=== PATIENT | female | born 2000 | race Caucasian/White ===

== ENCOUNTER 2019-10-16 21:23 | Emergency (ER) | payer OTHER ==
[2019-10-16 21:42] VITALS: O2SAT 97
--- NOTE | 2019-10-16 22:12 | ERPHSYRPT ---
- History of Present Illness Time Seen by Provider: 10/16/19 21:40 Source: patient Exam Limitations: no limitations Patient Subjective Stated Complaint: pt states she jumped on s/o back to get off of porch and they fell on some bricks. states she came down hard on her lt foot and has been having pain since. states she is unable to bear weight on lt foot Triage Nursing Assessment: pt alert and oriented, answers questions approp. pt back per wheelchair, transfers to stretcher per self, nwb on lt lower. cap refill and pedal pulse to lt lwower wnl. mild swelling to lt foot. Physician History: 19 years old female presented in the ER with chief complaint of fall with left foot pain prior to arrival. Pain is moderate intensity sharp in nature, aggravated with weightbearing/movements and better with being still. Minimal swelling around the little toe area. She also has a superficial skin tear on the sole of left foot with no bleeding. No injury anywhere else. Date with immunizations. Method of Injury: fell Occurred: this afternoon Quality: sharpness Severity of Pain-Max: moderate Severity of Pain-Current: moderate Lower Extremities Pain: foot: left Modifying Factors: Improves With: immobilization, movement Associated Symptoms: none Allergies/Adverse Reactions: No Known Drug Allergies Allergy (Verified 10/16/19 21:42) Home Medications: PARoxetine HCl [Paxil] 10 mg PO DAILY 10/16/19 [History] Hx Tetanus, Diphtheria Vaccination/Date Given: Yes Hx Influenza Vaccination/Date Given: No Hx Pneumococcal Vaccination/Date Given: No Immunizations Up to Date: Yes Travel Risk - International Travel Have you traveled outside of the country in past 3 weeks: No - Coronavirus Screening Are you exhibiting any of the following symptoms?: No Close contact with a COVID-19 positive Pt in past 14-21 Days: No - Review of Systems Constitutional: No Symptoms Eyes: No Symptoms Ears, Nose, & Throat: No Symptoms Respiratory: No Symptoms Cardiac: No Symptoms Abdominal/Gastrointestinal: No Symptoms Musculoskeletal: Fall, Injury, Joint Swelling Skin: Skin Lesions Neurological: No Symptoms Psychological: No Symptoms Endocrine: No Symptoms Hematologic/Lymphatic: No Symptoms Immunological/Allergic: No Symptoms - Past Medical History Pertinent Past Medical History: Yes Psycho-Social History: Depression - Past Surgical History Past Surgical History: No - Social History Smoking Status: Current every day smoker How long have you smoked: 1yr Exposure to second hand smoke: Yes Drug Use: none Patient Lives Alone: No - Female History Hx Last Menstrual Period: october 03- Hx Now: No - Nursing Vital Signs Nursing Vital Signs: Initial Vital Signs Temperature 98.3 F 10/16/19 21:30 Pulse Rate 85 10/16/19 21:30 Respiratory Rate 16 10/16/19 21:30 Blood Pressure 136/83 10/16/19 21:30 O2 Sat by Pulse Oximetry 97 10/16/19 21:30 Pain Scale Pain Intensity 5 - Physical Exam General Appearance: no apparent distress Eyes, Ears, Nose, Throat Exam: normal ENT inspection, pharynx normal Neck Exam: normal inspection, supple, full range of motion Cardiovascular/Respiratory Exam: normal breath sounds, regular rate/rhythm Gastrointestinal/Abdominal Exam: non-tender, soft Back Exam: normal inspection, normal range of motion Foot Exam: right foot: non-tender, normal inspection, normal range of motion, no evidence of injury, left foot: abrasions/lacerations (Swollen on the lateral aspect at base of fifth toe), bone tenderness (Fifth metatarsal phalangeal joint area), limited range of motion (Fifth toe), pain, soft tissue tenderness, swelling Neuro/Tendon Exam: normal sensation Mental Status Exam: alert, oriented x 3 Skin Exam: normal color, warm SpO2: 97 O2 Delivery: Room Air - Course Nursing assessment & vital signs reviewed: Yes Ordered Tests: Active Orders 24 hr Category Date Time Status Cold Application STAT Care 10/16/19 21:31 Completed Splint STAT Care 10/16/19 22:10 Completed FOOT (MINIMUM 3 VIEWS) Stat Exams 10/16/19 21:32 Taken - Progress Progress: unchanged, pain not gone completely Progress Note: 10/16/19 22:11 She is given ice pack. She is offered pain medication which she refused. X- rays foot on my review did not reveal any obvious fracture dislocation. She has difficulty ambulation, placed in a postop shoe and crutches as needed. Recommended taking Tylenol ibuprofen and outpatient follow-up with Ortho clinic. She has a superficial skin tear on the sole of the foot with no deep needing any suturing or intervention. Discussed signs symptoms of worsening needing return to ER which she seemed understanding. Counseled pt/family regarding: diagnosis, need for follow-up, rad results - Departure Departure Disposition: Home Clinical Impression: Acute pain of left foot Condition: Good Critical Care Time: No Referrals: JOVANI PELLETIER NP [Primary Care Provider] - Follow Up with PCP/3 days RAMIN SALAZAR NP [NON-STAFF PHY W/O PRIVILEGES] - (2 days for reevaluation) Instructions: Contusion (DC), Foot Sprain (DC) Additional Instructions: Take Tylenol/ibuprofen as needed for pain. Follow-up with Ortho clinic for reevaluation. Return to ER for any worsening. Prescriptions: Ibuprofen 600 mg PO Q6HPRN PRN 10 Days #20 tablet PRN Reason: Pain
[2019-10-16 22:18] VITALS: BP 118/88; PULSE 80
--- NOTE | 2019-10-17 07:50 | XRAY ---
Indication: Pain following injury. Comparison: None 3 nonweight bearing views left foot demonstrates navicular accessory ossicle. No other bony, articular, or soft tissue abnormalities.
== END 2019-10-16 22:23 | disposition home or self-care (01) ==
LOC: ED 21:23
DX: M79.672 Pain in left foot (principal); W01.198A Fall on same level from slipping, tripping and stumbling with subsequent striking against other object, initial encounter; Y92.9 Unspecified place or not applicable; S91.312A Laceration without foreign body, left foot, initial encounter
CPT/HCPCS: 73630; 99283

== ENCOUNTER 2024-04-20 15:47 | Emergency (ER) | payer SELFPAY ==
--- NOTE | 2024-04-20 16:32 | ERPHSYRPT ---
- History of Present Illness Time Seen by Provider: 04/20/24 16:27 Source: patient Exam Limitations: no limitations Physician History: 24-year-old female currently 6 weeks presents to our ED for evaluation of nausea vomiting and diarrhea. S nausea vomiting diarrhea is nonbloody nonbilious. ymptoms have been ongoing. Patient is worried about dehydration. No trauma no fever. Symptoms are mild to moderate in intensity. No specific worsening improving factors. Patient states she is otherwise healthy. Significant other at bedside. They voiced no other complaints or concerns at this time. Patient has no complaints regarding her . No abdominal pain cramping or vaginal bleeding. Portions of this note were created with voice recognition technology. There may be grammatical, spelling, punctuation or sound alike errors Timing/Duration: today Severity: moderate Modifying Factors: Improves With: nothing Associated Symptoms: denies symptoms Allergies/Adverse Reactions: No Known Drug Allergies Allergy (Verified 04/20/24 16:30) Home Medications: Pediatric Multivitamin No.42 [Flintstones] 1 tab PO DAILY 04/20/24 [History] Hx Tetanus, Diphtheria Vaccination/Date Given: Yes Hx Influenza Vaccination/Date Given: No Hx Pneumococcal Vaccination/Date Given: No - Review of Systems Constitutional: No Symptoms, No Fever, No Chills Eyes: No Symptoms Ears, Nose, & Throat: No Symptoms Respiratory: No Symptoms, No Cough, No Dyspnea Cardiac: No Symptoms, No Chest Pain, No Edema, No Syncope Abdominal/Gastrointestinal: No Symptoms, No Abdominal Pain, No Nausea, No Vomiting, No Diarrhea Genitourinary Symptoms: No Symptoms, No Dysuria Musculoskeletal: No Symptoms, No Back Pain, No Neck Pain Skin: No Symptoms, No Rash Neurological: No Symptoms, No Dizziness, No Focal Weakness, No Sensory Changes Psychological: No Symptoms Endocrine: No Symptoms Hematologic/Lymphatic: No Symptoms Immunological/Allergic: No Symptoms All Other Systems: Reviewed and Negative - Past Medical History Pertinent Past Medical History: Yes Psycho-Social History: Depression - Past Surgical History Past Surgical History: No - Social History Smoking Status: Current every day smoker How long have you smoked: 1yr Exposure to second hand smoke: Yes Drug Use: none Patient Lives Alone: No - Nursing Vital Signs Nursing Vital Signs: Initial Vital Signs Temperature 97.9 F 04/20/24 16:22 Pulse Rate 80 04/20/24 16:22 Blood Pressure 130/82 02/04/25 16:22 O2 Sat by Pulse Oximetry 100 04/20/24 16:22 Pain Scale Pain Intensity 0 - Physical Exam General Appearance: no apparent distress, alert Eye Exam: PERRL/EOMI, eyes nml inspection Ears, Nose, Throat Exam: normal ENT inspection, pharynx normal, moist mucous membranes Neck Exam: normal inspection, full range of motion Respiratory Exam: normal breath sounds, lungs clear, airway intact, No respiratory distress Cardiovascular Exam: regular rate/rhythm, normal heart sounds, normal peripheral pulses Gastrointestinal/Abdomen Exam: soft, normal bowel sounds, No tenderness, No mass Back Exam: normal inspection, normal range of motion, No CVA tenderness, No vertebral tenderness Extremity Exam: normal inspection, normal range of motion, pelvis stable Neurologic Exam: alert, oriented x 3, cooperative, normal mood/affect, sensation nml, No motor deficits Skin Exam: normal color, warm, dry, No rash Lymphatic Exam: No adenopathy SpO2 Interpretation: normal O2 Delivery: Room Air - Course Nursing assessment & vital signs reviewed: Yes Ordered Tests: Active Orders 24 hr Category Date Time Status IV Insertion STAT Care 04/20/24 16:39 Completed CBC W DIFF Stat Lab 04/20/24 16:45 Completed CMP Stat Lab 04/20/24 16:45 Completed CULTURE,URINE Stat Lab 04/20/24 16:53 Received UA W/RFX UR CULTURE Stat Lab 04/20/24 16:53 Completed Medication Summary Discontinued Medications Generic Name Dose Route Start Last Admin Trade Name Freq PRN Reason Stop Dose Admin Sodium Chloride 1,000 mls @ 999 mls/hr 04/20/24 16:39 04/20/24 17:01 Sodium Chloride 0.9% 1000 Ml IV 04/20/24 17:39 999 mls/hr .Q1H1M STA Administration Sodium Chloride Confirm 04/20/24 16:59 Sodium Chloride 0.9% 1000 Ml Administered 04/20/24 17:00 Dose 1,000 mls @ ud .ROUTE .STK-MED ONE Nitrofurantoin Macrocrystals 100 mg 04/20/24 18:43 04/20/24 18:54 Nitrofurantoin Macro 100 Mg Capsule PO 04/20/24 18:44 100 mg STAT ONE Administration Nitrofurantoin Macrocrystals Confirm 04/20/24 18:53 Nitrofurantoin Macro 100 Mg Capsule Administered 04/20/24 18:54 Dose 100 mg .ROUTE .STK-MED ONE Ondansetron HCl 4 mg 04/20/24 16:39 04/20/24 17:02 Ondansetron Hcl 4 Mg/2 Ml Vial IV 04/20/24 16:40 4 mg STAT ONE Administration Ondansetron HCl Confirm 04/20/24 16:59 Ondansetron Hcl 4 Mg/2 Ml Vial Administered 04/20/24 17:00 Dose 4 mg .ROUTE .STK-MED ONE Ondansetron HCl 4 mg 04/20/24 18:45 04/20/24 18:55 Ondansetron Hcl 4 Mg/2 Ml Vial IV 04/20/24 18:46 4 mg STAT ONE Administration Ondansetron HCl Confirm 04/20/24 18:53 Ondansetron Hcl 4 Mg/2 Ml Vial Administered 04/20/24 18:54 Dose 4 mg .ROUTE .STK-MED ONE Lab/Rad Data: Laboratory Result Diagrams 04/20/24 16:45 04/20/24 16:45 Laboratory Results 04/20/24 04/20/24 04/20/24 Range/Units 16:53 16:45 16:45 WBC 7.2 (3.98-10.04) x10^3/uL RBC 4.80 (3.93-5.22) x10^6/uL Hgb 14.7 (11.2-15.7) g/dL Hct 41.5 (34.1-44.9) % MCV 86.5 (79.4-94.8) fL MCH 30.6 (25.6-32.2) pg MCHC 35.4 (32.2-35.5) g/dL RDW 11.9 (11.7-14.4) % Plt Count 327 (182-369) x10^3/uL MPV 9.5 (9.4-12.3) fL Gran % 65.5 (34.0-71.1) % Immature Gran % (Auto) 0.3 (0.001-0.429) % Nucleat RBC Rel Count 0.0 (0.00-0.2) % Eos # (Auto) 0.04 (0.04-0.36) x10^3/uL Immature Gran # (Auto) 0.02 (0.001-0.031) x10^3u/L Absolute Lymphs (auto) 1.82 (1.18-3.74) x10^3/uL Absolute Monos (auto) 0.57 (0.24-0.86) x10^3/uL Absolute Nucleated RBC 0.00 (0.00-0.012) x10^3u/L Lymphocytes % 25.3 (19.3-51.7) % Monocytes % 7.9 (4.7-12.5) % Eosinophils % 0.6 L (0.7-5.8) % Basophils % 0.4 (0.1-1.2) % Absolute Granulocytes 4.70 (1.56-6.13) x10^3/uL Basophils # 0.03 (0.01-0.08) x10^3/uL Sodium 136 (135-145) mmol/L Potassium 3.8 (3.5-5.1) mmol/L Chloride 100 (98-107) mmol/L Carbon Dioxide 22 (22-30) mmol/L Anion Gap 17.6 H (5-15) MEQ/L BUN 8 (7-17) mg/dL Creatinine 0.54 (0.52-1.04) mg/dL Estimated GFR 130.1 ML/MIN Glucose 89 (74-106) mg/dL Calcium 9.7 (8.4-10.2) mg/dL Total Bilirubin 1.10 (0.2-1.3) mg/dL AST 26 (14-36) U/L ALT 21 (0-35) U/L Alkaline Phosphatase 62 (38-126) U/L Serum Total Protein 7.8 (6.3-8.2) g/dL Albumin 5.1 H (3.5-5.0) g/dL Urine Color Dark Yellow A (Yellow) Urine Appearance Cloudy A (Clear) Urine pH 6.5 (4.6-8.0) Ur Specific [place] >=1.030 A (1.005-1.030) Urine Protein 100 A (Negative) Urine Glucose (UA) Negative (Negative) mg/dL Urine Ketones >=160 A (Negative) Urine Blood Trace (Negative) Urine Nitrite Negative (Negative) Urine Bilirubin Negative (Negative) Urine Urobilinogen 1.0 A (0.2) mg/dL Ur Leukocyte Esterase Moderate A (Negative) U Hyaline Cast (Auto) 3-5 A (0-2) /LPF Urine Microscopic RBC 11-20 A (0-5) /HPF Urine Microscopic WBC 21-50 A (0-5) /HPF Ur Epithelial Cells Many A (None Seen) /HPF Urine Bacteria Moderate A (None Seen) /HPF Urine Culture Reflexed YES (NO) - Progress Progress: improved Progress Note: 24-year-old female presents to our ED with nausea vomiting diarrhea. Physical exam unremarkable. Workup reveals a urinary tract infection. Patient received an oral dose of Macrobid. IV fluids infused. Zofran administered for nausea and vomiting. Symptoms improved. Patient reports that she is ready for discharge. Will discharge home at this time. Patient agrees to follow-up with the primary care doctor within 48 hours for reevaluation. Complexity of problem addressed is moderate acute complicated. No critical care time. Complex of data reviewed and analyzed is moderate. Test ordered chest reviewed results analyzed and correlated clinically with history and physical exam. Risk of complication and or risk of morbidity/mortality of patient management is moderate. A prescription for Zofran forwarded to patient's pharmacy. A prescription for Macrobid forwarded to patient's pharmacy as well. Vital stable. Time spent to discharge patient is approximately 15 minutes. Plan of care established for shared decision making. No social determinants of health present to impede follow-up. Portions of this note were created with voice recognition technology. There may be grammatical, spelling, punctuation or sound alike errors 04/20/24 18:47 04/20/24 18:48 Counseled pt/family regarding: lab results, diagnosis - Departure Departure Disposition: Home Clinical Impression: Nausea and vomiting, Dehydration, Urinary tract infection, Diarrhea Condition: Stable Critical Care Time: No Referrals: JOVANI PELLETIER NP [Primary Care Provider] - Follow up/PCP as directed Instructions: Nausea and vomiting in adults Additional Instructions: Discharge/Care Plan AVIRUSSDWAINE Sherrie was seen on 04/20/24 in the Emergency Room. The patient was counseled regarding Diagnosis,Lab results, Imaging studies, need for follow up and when to return to the Emergency Room. Prescriptions given: Discharge Note I have spoken with the patient and/or caregivers. I have explained the patient's condition, diagnosis and treatment plan based on the information available to me at this time. I have answered the patient's and/or caregiver's questions and addressed any concerns. The patient and/or caregivers have as good understanding of the patient's diagnosis, condition and treatment plan as can be expected at this point. The vital signs have been stable. The patient's condition is stable and appropriate for discharge from the emergency department. The patient will pursue further outpatient evaluation with the primary care physician or other designated or consulting physician as outlined in the discharge instructions. The patient and/or caregivers are agreeable to this plan of care and follow-up instructions have been explained in detail. The patient and/or caregivers have received these instruction. The patient/and or caregivers are aware that any significant change in condition or worsening of symptoms should prompt an immediate return to this or the closest emergency department or call 911. Prescriptions: Ondansetron ODT 4 MG [Zofran Odt 4 mg] 4 mg PO Q6H PRN PRN #10 tablet PRN Reason: Vomiting
[2024-04-20 16:34] VITALS: TEMP 97.9
[2024-04-20] MEDS ORDERED: Zofran 4 MG/2 ML VIAL ONE ×2 (16:59→18:53)
[2024-04-20] MEDS ORDERED: Sodium Chloride 0.9% 1000 ML 1,000 ML ONE (16:59)
[2024-04-20] MEDS: Sodium Chloride 0.9% 1000 ML 1,000 ML IV STA (17:01)
[2024-04-20] MEDS: Zofran 4 MG/2 ML VIAL IV ONE ×2 (17:02→18:55)
[2024-04-20 17:03] LABS: BASOPHIL % 0.4 % (0.1-1.2); Basophil (Absolute #) 0.03 x10^3/uL (0.01-0.08); Eosinophil % 0.6 % (0.7-5.8); Eosinophil (Absolute #) 0.04 x10^3/uL (0.04-0.36); Hematocrit 41.5 % (34.1-44.9); Hemoglobin 14.7 g/dL (11.2-15.7); IMMATURE GRAN # 0.02 x10^3u/L (0.001-0.031); IMMATURE GRAN % 0.3 % (0.001-0.429); Lymphocyte (Absolute #) 1.82 x10^3/uL (1.18-3.74); Lymphocytes % 25.3 % (19.3-51.7); Mean Cell Volume 86.5 fL (79.4-94.8); Mean Corpuscular Hemoglobin 30.6 pg (25.6-32.2); Mean Corpuscular Hgb Concent. 35.4 g/dL (32.2-35.5); Mean Platelet Volume 9.5 fL (9.4-12.3); Monocyte (Absolute #) 0.57 x10^3/uL (0.24-0.86); Monocytes % 7.9 % (4.7-12.5); Neutrophil % 65.5 % (34.0-71.1); Platelet Count 327 x10^3/uL (182-369); Red Cell Distribution Width 11.9 % (11.7-14.4); White Blood Count 7.2 x10^3/uL (3.98-10.04)
[2024-04-20 17:08] LABS: Appearance Cloudy (Clear); Bacteria Moderate /HPF (None Seen); Bilirubin Negative (Negative); Blood Trace (Negative); Epithelial Cells Many /HPF (None Seen); Glucose, Urine Negative (Negative); Ketones >=160 (Negative); Leukocyte Esterase Moderate (Negative); Nitrite Negative (Negative); Ph 6.5 (4.6-8.0); Protein,Urine Dip 100 (Negative); Specific Gravity >=1.030 (1.005-1.030); WBC 21-50 /HPF (0-5)
[2024-04-20 17:16] LABS: ALBUMIN 5.1 g/dL (3.5-5.0); ANION GAP 17.6 MEQ/L (5-15); BILIRUBIN,TOTAL 1.1 mg/dL (0.2-1.3); Calcium 9.7 mg/dL (8.4-10.2); Creatinine 1 0.54 mg/dL (0.52-1.04); EST GLOMERULAR FILTRATION RATE 130.1 ML/MIN; Potassium 3.8 mmol/L (3.5-5.1); Total Protein 7.8 g/dL (6.3-8.2)
[2024-04-20 18:51] VITALS: BP 114/66; PULSE 98; RESP 18; O2SAT 99
[2024-04-20] MEDS ORDERED: Macrobid 100MG Capsule ONE (18:53)
[2024-04-20] MEDS: Macrobid 100MG Capsule PO ONE (18:54)
== END 2024-04-20 19:18 | disposition home or self-care (01) ==
LOC: ED 15:47
DX: O21.9 Vomiting of pregnancy, unspecified (principal); O23.41 Unspecified infection of urinary tract in pregnancy, first trimester; N39.0 Urinary tract infection, site not specified; Z3A.01 Less than 8 weeks gestation of pregnancy; E86.0 Dehydration; R19.7 Diarrhea, unspecified; Z72.0 Tobacco use; Z79.899 Other long term (current) drug therapy
CPT/HCPCS: 36415; 80053; 81001; 85025; 87086; 96374; 96376; 99284; J2405; A9270-GY